=== PATIENT | female | born 1955 | race Two or more races ===

== ENCOUNTER 2024-10-04 20:27 | Emergency (ER) | payer SELFPAY ==
[~2024-10-04] VITALS: Ht 162.6 cm; Wt 91.0 kg
[2024-10-04 20:49] VITALS: O2SAT 99
[2024-10-04] MEDS: HALOPERIDOL LACTATE 5MG/ML VIAL IM NR (23:06)
[2024-10-05 07:58] VITALS: BP 147/95; PULSE 95; RESP 16; TEMP 36.9; O2SAT 99
== END 2024-10-05 08:19 | disposition home or self-care (01) ==
LOC: ER 20:27
DX: F10.129 Alcohol abuse with intoxication, unspecified (principal); F19.90 Other psychoactive substance use, unspecified, uncomplicated; Y90.9 Presence of alcohol in blood, level not specified
CPT/HCPCS: 99285; 96372; J1630